=== PATIENT | female | born 1950 | race Caucasian/White ===

== ENCOUNTER 2022-08-26 18:28 | Emergency (ER) | payer MEDICARE ==
[~2022-08-26] VITALS: Ht 157.5 cm; Wt 52.2 kg
[2022-08-26] MEDS ORDERED: KAVA200C PO (18:49)
[2022-08-26] MEDS ORDERED: VITAMIN D3 PO (18:49)
[2022-08-26] MEDS ORDERED: ASCO500C18 PO (18:49)
[2022-08-26] MEDS ORDERED: [UNRECOGNIZED DRUG - OTHER] PO (18:49)
--- NOTE | 2022-08-26 18:59 | NUR ---
Per pt may be d/c back to her assisted living facility. Called [facility] for transport, ETA [id number].
[2022-08-26] MEDS ORDERED: ATOR10TA PO (19:01)
[2022-08-26] MEDS ORDERED: ST JOHN'S WORT PO (19:01)
[2022-08-26] MEDS ORDERED: NYST5ORA PO (19:01)
[2022-08-26] MEDS ORDERED: LOSA25TA27 PO (19:01)
[2022-08-26] MEDS ORDERED: ZINC1CAP2 PO (19:01)
--- NOTE | 2022-08-26 21:31 | NUR ---
Patient discharged to [facility] in stable condition. Written and verbal after care instructions given. Patient verbalizes understanding of instructions. Stressed follow up or return to ER for worsening s/s.
[2022-08-26 21:33] VITALS: BP 134/87
== END 2022-08-26 21:34 ==
LOC: ER 18:28
DX: Z04.3 Encounter for examination and observation following other accident (principal); Z91.81 History of falling; F03.C0 Unspecified dementia, severe, without behavioral disturbance, psychotic disturbance, mood disturbance, and anxiety; F09 Unspecified mental disorder due to known physiological condition
CPT/HCPCS: A4663